=== PATIENT | female | born 1985 | race Two or more races ===

== ENCOUNTER 2021-05-03 09:22 | Outpatient (CLI) | payer OTHER | END 2021-05-03 10:39 | disposition home or self-care (01) | LOC: RX STUDY 09:22 | PROVIDERS: ATTEND Obstetrics & Gynecology | DX: N84.0 Polyp of corpus uteri (principal) ==

== ENCOUNTER 2023-12-30 12:00 | Inpatient (IN) | payer OTHER ==
[~2023-12-30] VITALS: Ht 160 cm; Wt 89.4 kg
[~2023-12-30 12:00] MED LIST: ANUSOL-HC30 G2 RECTAL; CEFADROXIL500 MG PO
[2023-12-30 14:11] LABS: HEMATOCRIT 36.1 % (36.0-45.00); HEMOGLOBIN 12.2 g/dL (12.0-15.00); MEAN CORPUSCULAR HEMOGLOBIN 28.8 pg (27.00-32.0); MEAN CORPUSCULAR HGB CONC 33.8 g/dl (32.0-36.0); PLATELET COUNT 168 K/uL (150-450); RED BLOOD COUNT 4.24 M/uL (4.00-6.00); RED CELL DISTRIBUTION WIDTH 14.8 % (11.5-14.5)
[2023-12-30 14:46] LABS: ALBUMIN 2.5 gm/dL (3.4-5.0); BILIRUBIN TOTAL 0.47 mg/dL (0.3-1.2); CALCIUM 8.8 mg/dL (8.5-10.1); CREATININE SERUM 0.66 mg/dL (0.55-1.02); GFR 101.33; GLOBULINA 3.6 G/DL (2.4-3.5); POTASSIUM 3.98 mEq/L (3.5-5.1); TOTAL PROTEIN 6.1 gm/dL (6.4-8.2)
[2023-12-30 15:12] LABS: INR 0.95; PARTIAL THROMBOPLASTIN TIME 25.9 SECONDS (22.0-34.0)
[2024-01-08] MEDS ORDERED: FOLIC ACID0.8 M1 PO (06:39)
[2024-01-08] MEDS ORDERED: PRENA1 TRUE CO1 EACH PO (06:39)
[2024-01-08] MEDS ORDERED: CEFAZOLIN SODIUM 1,000 MG VIAL IV NR (09:45)
[2024-01-08] MEDS ORDERED: OXYTOCIN 10 UNITS/ML VIAL IV ONE (10:30)
[2024-01-08] MEDS ORDERED: PROMETHAZINE HCL 50 MG/ML AMPUL IM PRN (11:45)
[2024-01-08] MEDS ORDERED: MEPERIDINE HCL/PF 50 MG/ML VIAL IM PRN (11:45)
[2024-01-08] MEDS ORDERED: RINGERS SOLUTION,LACTATED 1,000 ML IV SCH (11:45)
[2024-01-08] MEDS ORDERED: ERYTHROMYCIN BASE 1 GM TUBE OP ONE (13:30)
[2024-01-08] MEDS ORDERED: CEFAZOLIN SODIUM 1,000 MG VIAL ONE (13:45)
[2024-01-08] MEDS ORDERED: CEFAZOLIN SODIUM 1,000 MG VIAL IV SCH (14:00)
[2024-01-08] MEDS ORDERED: PROMETHAZINE HCL 50 MG/ML AMPUL IM ONE (14:09)
[2024-01-09 02:19] LABS: HEMATOCRIT 36.6 % (36.0-45.00); HEMOGLOBIN 12.5 g/dL (12.0-15.00); MEAN CELL VOLUME 85.3 fL (80.00-100.00); MEAN CORPUSCULAR HEMOGLOBIN 29.2 pg (27.00-32.0); MEAN CORPUSCULAR HGB CONC 34.3 g/dl (32.0-36.0); PLATELET COUNT 144 K/uL (150-450); RED BLOOD COUNT 4.29 M/uL (4.00-6.00); RED CELL DISTRIBUTION WIDTH 14.3 % (11.5-14.5)
[2024-01-09] MEDS ORDERED: OxyCODONE HCL/APAP UD (PERCOCET) PO PRN (12:15)
[2024-01-10] MEDS ORDERED: BISACODYL 10 MG/SUPP.RECT SUPP.RECT RECTAL STA (15:13)
[2024-01-11] MEDS ORDERED: ANUSOL-HC30 G2 RECTAL (07:53)
[2024-01-11] MEDS ORDERED: IBUPROFEN800 MG PO (07:53)
== END 2024-01-11 13:29 | disposition home or self-care (01) | DRG 784 ==
LOC: O/R 01-08 06:00 → OB/GYN 01-08 08:45
PROVIDERS: ADMIT Specialist; ATTEND Specialist
PROC: 0UB70ZZ Excision of Bilateral Fallopian Tubes, Open Approach (ICD-10-PCS; 2024-01-08)
PROC: 4A1HXCZ Monitoring of Products of Conception, Cardiac Rate, External Approach (ICD-10-PCS; 2024-01-08)
PROC: 10D00Z1 Extraction of Products of Conception, Low, Open Approach (ICD-10-PCS; principal; 2024-01-08 08:45)
DX: O34.211 Maternal care for low transverse scar from previous cesarean delivery (principal); O22.43 Hemorrhoids in pregnancy, third trimester; Z3A.39 39 weeks gestation of pregnancy; Z37.0 Single live birth; Z30.2 Encounter for sterilization; Z20.822 Contact with and (suspected) exposure to COVID-19